=== PATIENT | female | born 1975 | race Native Hawaiian/Other Pacific Islander ===

== ENCOUNTER 2019-10-01 10:29 | Outpatient (CLI) | payer OTHER | END 2019-10-01 19:13 | disposition home or self-care (01) | LOC: US 10:29 | DX: R60.0 Localized edema (principal) ==

== ENCOUNTER 2019-10-16 13:04 | Outpatient (CLI) | payer OTHER | END 2019-10-16 19:53 | disposition home or self-care (01) | LOC: MAMMO 13:04 | DX: Z12.31 Encounter for screening mammogram for malignant neoplasm of breast (principal); R60.0 Localized edema | CPT/HCPCS: 36415; 82565; 84520 ==

== ENCOUNTER 2019-10-19 08:43 | Outpatient (CLI) | payer OTHER | END 2019-10-19 19:21 | disposition home or self-care (01) | LOC: CT 08:43 | DX: R60.0 Localized edema (principal) | CPT/HCPCS: Q9963 ==

== ENCOUNTER 2019-10-28 12:45 | Outpatient (CLI) | payer OTHER | END 2019-10-28 19:35 | disposition home or self-care (01) | LOC: MAMMO 12:45 | DX: R92.2 Inconclusive mammogram (principal) ==

== ENCOUNTER 2020-05-19 08:38 | Outpatient (CLI) | payer OTHER | END 2020-05-19 21:50 | disposition home or self-care (01) | LOC: MAMMO 08:38 | DX: R92.2 Inconclusive mammogram (principal) ==

== ENCOUNTER 2020-10-04 08:59 | Outpatient (CLI) | payer OTHER | END 2020-10-04 19:10 | disposition home or self-care (01) | LOC: RAD 08:59 | PROVIDERS: ATTEND Nurse Practitioner | DX: M25.551 Pain in right hip (principal); M25.552 Pain in left hip ==